=== PATIENT | female | born 2000 ===

== ENCOUNTER 2021-06-19 00:59 | Outpatient (CLI) | payer SELFPAY ==
[2021-06-20 18:23] LABS: COVID-19 RT-PCR UVMMC Result Negative (Negative)
== END 2021-06-19 01:00 | disposition home or self-care (01) ==
PROVIDERS: Visit Provider Nurse Practitioner Family
DX: Z20.822 Contact with and (suspected) exposure to COVID-19 (principal)
CPT/HCPCS: U0003